=== PATIENT | female | born 1990 | race African-American/Black ===

== ENCOUNTER 2019-03-29 01:05 | Inpatient (IN) | payer MEDICAID ==
[~2019-03-29] VITALS: Ht 165.1 cm; Wt 69.9 kg
[2019-03-29] MEDS ORDERED: PROMETHAZINE 25 MG/ML VIAL IVP PRN (03:15)
[2019-03-29] MEDS ORDERED: METHYLERGONOVINE 0.2 MG/ML AMP IM PRN (03:15)
[2019-03-29] MEDS ORDERED: LACTATED RINGERS 1,000 ML IV SCH (03:15)
[2019-03-29] MEDS ORDERED: OXYTOCIN 10 UNITS/ML VIAL IM SCH (03:15)
[2019-03-29] MEDS ORDERED: MISOPROSTOL 25 MCG TAB VG PRN (03:15)
[2019-03-29] MEDS ORDERED: OXYTOCIN 20 UNITS in LACTATED RINGERS 1,000 ML IV SCH (03:15)
[2019-03-29 03:40] LABS: APPEARANCE,URINE SL CLOUDY (CLEAR); BILIRUBIN,URINE NEGATIVE (NEGATIVE); BLOOD, URINE NEGATIVE (NEGATIVE); COLOR,URINE YELLOW (YELLOW); LEUKOCYTE ESTERASE ,URINE 3+ (NEGATIVE); NITRITE, URINE NEGATIVE (NEGATIVE); UGLUCOSE NEGATIVE (NEGATIVE)
[2019-03-29 03:42] LABS: BASOPHILS # (AUTO) 0.1 K/uL (0.00-0.22); BASOPHILS % (AUTO) 0.6 % (0.0-2.0); EOSINOPHILS % (AUTO) 0.4 % (0.0-4.0); HEMATOCRIT 26.4 % (36-48); HEMOGLOBIN 8.2 g/dL (12.0-16.0); LYMPHOCYTES # (AUTO) 2.1 K/uL (2.5-16.5); LYMPHOCYTES % (AUTO) 25.8 % (20.5-51.1); MEAN CORPUSCULAR HEMOGLOBIN 23 pg (27-31); MEAN CORPUSCULAR HGB CONC 31 g/dL (33-37); MEAN CORPUSCULAR VOLUME 72.1 fL (80-94); MONOCYTES # (AUTO) 0.6 K/uL (0.8-1.0); NEUTROPHILS # (AUTO) 5.3 K/uL (1.8-7.7); NEUTROPHILS % (AUTO) 66.2 % (42.2-75.2); PLATELET COUNT (AUTO) 260 K/uL (140-450); RED BLOOD CELL COUNT(AUTO) 3.66 MIL/uL (4.20-5.40); RED CELL DISTRIBUTION WIDTH 17.8 % (11.6-13.7); WHITE BLOOD COUNT (AUTO) 8.1 K/uL (4.8-10.8)
[2019-03-29 03:55] LABS: RBC,URINE 0-5 /HPF (0-5)
[2019-03-29] MEDS ORDERED: AMPICILLIN 2,000 MG in NACL 0.9% MINI-BAG PLUS 100 ML IV SCH (04:00)
[2019-03-29] MEDS ORDERED: AMPICILLIN 2,000 MG VIAL ONE (04:08)
[2019-03-29 06:33] VITALS: BP 131/92
[2019-03-29] MEDS ORDERED: PROMETHAZINE 25 MG/ML VIAL ONE (07:47)
[2019-03-29] MEDS ORDERED: NALBUPHINE 10 MG/ML AMP ONE ×2 (07:47→16:38)
[2019-03-29] MEDS ORDERED: AMPICILLIN 1,000 MG VIAL ONE ×4 (07:47→23:42)
[2019-03-29] MEDS: NALBUPHINE 10 MG/ML AMP IVP PRN ×2 (07:57→16:40)
[2019-03-29] MEDS: AMPICILLIN 1,000 MG in NACL 0.9% MINI-BAG PLUS 50 ML IV SCH ×4 (07:58→20:10)
--- NOTE | 2019-03-29 09:15 | NUR ---
PATIENT HAS BEEN SCREENED AND CATEGORIZED LOW NUTRITION RISK. PATIENT WILL BE SEEN WITHIN 7 DAYS OF ADMISSION. 04/04/[address]
[2019-03-29] MEDS ORDERED: ROPIVACAINE 0.2%/NS PREMIX 100 ML EPI ONE (17:35)
[2019-03-30] MEDS ORDERED: BENZOCAINE/MENTHOL 20%-0.5% 60 GM CAN TP PRN (01:00)
[2019-03-30] MEDS ORDERED: METHYLERGONOVINE 0.2 MG/ML AMP IM PRN (01:00)
[2019-03-30] MEDS ORDERED: TEMAZEPAM 15 MG CAP PO PRN (01:00)
[2019-03-30] MEDS ORDERED: BISACODYL 10 MG SUPP RC PRN (01:00)
[2019-03-30] MEDS ORDERED: HYDROcodone/APAP 5/325 MG 1 TAB TAB PO PRN (01:00)
[2019-03-30] MEDS ORDERED: MEASLES, MUMPS, AND RUBELLA 1 VIAL SQVAC PRN (01:00)
[2019-03-30] MEDS ORDERED: SODIUM PHOSPHATE 118 ML ENEM RC PRN (01:00)
[2019-03-30] MEDS ORDERED: oxyCODONE/APAP 5/325 MG 1 TAB TAB PO PRN (01:00)
[2019-03-30] MEDS ORDERED: OXYTOCIN 10 UNITS/ML VIAL IM PRN (01:00)
[2019-03-30] MEDS: IBUPROFEN 800 MG TAB PO PRN ×2 (02:25→16:55)
[2019-03-30] MEDS: CALCIUM POLYCARBOPHIL 625 MG TAB PO SCH ×2 (16:55→20:41)
[2019-03-30] MEDS: BISACODYL 5 MG TABEC PO SCH (20:41)
[2019-03-30] MEDS: DOCUSATE SOD/SENNA 50/8.6 MG 1 TAB PO SCH (21:00)
[2019-03-30] MEDS: SENNA 8.6 MG TAB PO SCH (21:00)
[2019-03-30] MEDS ORDERED: DOCUSATE SOD/SENNA 50/8.6 MG 1 TAB PO SCH (21:00)
[2019-03-31 07:14] LABS: HEMATOCRIT 22.5 % (36-48)
[2019-03-31 07:16] LABS: HEMOGLOBIN 6.9 g/dL (12.0-16.0)
[2019-03-31] MEDS: CALCIUM POLYCARBOPHIL 625 MG TAB PO SCH ×2 (09:25→18:09)
[2019-03-31] MEDS ORDERED: FERR325E14 PO (17:38)
[2019-03-31] MEDS ORDERED: IBUP-2213 PO (17:39)
[2019-03-31] MEDS ORDERED: MAG SULF 20 GM/H2O PREMIX DRIP 500 ML IV ONE (21:32)
[2019-03-31] MEDS ORDERED: MAG SULF 2000 MG/WATER PREMIX 50 ML IV ONE (21:40)
[2019-03-31] MEDS ORDERED: LACTATED RINGERS 1,000 ML IV SCH (21:40)
[2019-03-31 22:11] LABS: BASOPHILS # (AUTO) 0.1 K/uL (0.00-0.22); BASOPHILS % (AUTO) 0.6 % (0.0-2.0); EOSINOPHILS # (AUTO) 0.2 K/uL (0-0.4); EOSINOPHILS % (AUTO) 1.9 % (0.0-4.0); HEMOGLOBIN 7.7 g/dL (12.0-16.0); LYMPHOCYTES # (AUTO) 2.2 K/uL (2.5-16.5); LYMPHOCYTES % (AUTO) 17.3 % (20.5-51.1); MEAN CORPUSCULAR HEMOGLOBIN 22 pg (27-31); MEAN CORPUSCULAR HGB CONC 31 g/dL (33-37); MEAN CORPUSCULAR VOLUME 72.1 fL (80-94); MONOCYTES % (AUTO) 7.7 % (1.7-9.3); NEUTROPHILS # (AUTO) 9.4 K/uL (1.8-7.7); NEUTROPHILS % (AUTO) 72.5 % (42.2-75.2); PLATELET COUNT (AUTO) 226 K/uL (140-450); RED BLOOD CELL COUNT(AUTO) 3.48 MIL/uL (4.20-5.40); RED CELL DISTRIBUTION WIDTH 18.2 % (11.6-13.7); WHITE BLOOD COUNT (AUTO) 12.9 K/uL (4.8-10.8)
[2019-03-31 22:29] LABS: ANION GAP 13.2 (8-16); CREATININE 0.6 mg/dL (0.6-1.3); POTASSIUM 4.2 mmol/L (3.5-5.1)
[2019-03-31 22:31] LABS: ALBUMIN 2.4 g/dL (3.4-5.0); MAGNESIUM 1.6 mg/dL (1.8-2.4); PROTHROMBIN TIME 9.1 secs (10.8-13.4); TOTAL BILIRUBIN 0.2 mg/dL (0.0-1.0)
[2019-03-31] MEDS: IBUPROFEN 800 MG TAB PO PRN (23:49)
[2019-04-01] MEDS ORDERED: MAG SULF 20 GM/H2O PREMIX DRIP 500 ML IV ONE ×2 (08:20→17:49)
[2019-04-01] MEDS: IBUPROFEN 800 MG TAB PO PRN ×2 (10:13→19:52)
[2019-04-01] MEDS: DOCUSATE SOD/SENNA 50/8.6 MG 1 TAB PO SCH (21:39)
[2019-04-01] MEDS: BISACODYL 5 MG TABEC PO SCH (21:40)
[2019-04-01] MEDS: SENNA 8.6 MG TAB PO SCH (21:41)
[2019-04-01] MEDS: CALCIUM POLYCARBOPHIL 625 MG TAB PO SCH (21:43)
[2019-04-02] MEDS: IBUPROFEN 800 MG TAB PO PRN (06:02)
[2019-04-02] MEDS: CALCIUM POLYCARBOPHIL 625 MG TAB PO SCH (08:17)
== END 2019-04-02 11:30 | disposition home or self-care (01) | DRG 560 ==
LOC: MLD 01:05 → OBSVTOIN 03:00 → MFCC 03-30 03:30
PROVIDERS: ADMIT Obstetrics & Gynecology; ATTEND Obstetrics & Gynecology
PROC: 10D07Z6 Extraction of Products of Conception, Vacuum, Via Natural or Artificial Opening (ICD-10-PCS; principal; 2019-03-30)
PROC: 3E033VJ Introduction of Other Hormone into Peripheral Vein, Percutaneous Approach (ICD-10-PCS; 2019-03-30)
PROC: 0HQ9XZZ Repair Perineum Skin, External Approach (ICD-10-PCS; 2019-03-30)
PROC: 0W8NXZZ Division of Female Perineum, External Approach (ICD-10-PCS; 2019-03-30)
PROC: 00HU33Z Insertion of Infusion Device into Spinal Canal, Percutaneous Approach (ICD-10-PCS; 2019-03-30)
PROC: 3E0R3BZ Introduction of Anesthetic Agent into Spinal Canal, Percutaneous Approach (ICD-10-PCS; 2019-03-30)
DX: O99.824 Streptococcus B carrier state complicating childbirth (principal); D62 Acute posthemorrhagic anemia; O14.15 Severe pre-eclampsia, complicating the puerperium; O70.0 First degree perineal laceration during delivery; O69.1XX0 Labor and delivery complicated by cord around neck, with compression, not applicable or unspecified; O36.8130 Decreased fetal movements, third trimester, not applicable or unspecified; Z37.0 Single live birth; Z3A.39 39 weeks gestation of pregnancy; Z80.9 Family history of malignant neoplasm, unspecified; Z83.3 Family history of diabetes mellitus; Z82.3 Family history of stroke; Z82.49 Family history of ischemic heart disease and other diseases of the circulatory system
CPT/HCPCS: G0378 ×2; 36415; 51702; 80053; 81001; 83735; 85018; 85025; 85384; 85610; 85730; 86592; 86886; 86900; 86901; 87086; J0290; J2300; J2550; J2590; J2795; J3475; J7120